=== PATIENT | female | born 1935 | race Caucasian/White ===

== ENCOUNTER 2016-09-14 18:49 | Inpatient (IN) | payer MEDICARE, OTHER ==
--- NOTE | ~2016-09-14 | DS ---
Discharge Summary [facility] [address] [facility] [place]. [address] NAME: NISHI JOHN : 37 STATUS : ADM IN PAT#: [id number] AGE: 81 ADM/REG DATE : 09/14/16 MR#: [id number] REPORT SERV DATE: 09/17/16 DICTATED BY: DAVID ARAMBULA DATE: 09/17/16 REPORT STATUS : Draft TRANSCRIBED BY: MODL DATE: 09/17/16 ADMISSION DATE: 09/14/2016 DISCHARGE DATE: 09/17/2016 DISCHARGE DIAGNOSES: 1. Acute metabolic encephalopathy probably due to inadvertent medication consumption. 2. Acute on chronic hypercapnic hypoxic respiratory failure. 3. Mild exacerbation of chronic obstructive pulmonary disease with asthma. 4. Hypertension. 5. Gastroesophageal reflux disease. 6. Peripheral neuropathy. 7. Steroid-induced hyperglycemia. 8. Peripheral arterial disease. 9. History of colon polyps. 10.Obesity. 11.Possible frontotemporal dementia based on CT scan of brain, 07/22/2014. HISTORY: This 81-year-old patient resides at home. She has a granddaughter who is there with her most of the time. She has been under a lot of stress with the of a sister in the recent months and she was very close to that sister and there was another sibling who was recently in poor health and placed in a long-term care facility. The daughter, Vilma, tells me in phone conversation, the patient has been less compliant with her medicines, began smoking again. She has been more withdrawn and emotionally flat. According to the daughter, Vilma, they felt she was more depressed, so she took her to her physician and the patient had been started on Zyprexa in addition to her Prozac that she was already on. On the day of this admission reportedly, the patient was noted by the granddaughter to be very drowsy, hard to wake up and when she was awake she was talking "out of her head." When I asked for more details, they said she was talking about her sister who was , but speaking about her as if she was alive. Granddaughter contacted the daughter and they decided to call 911. Reportedly, the daughter stayed on the phone talking to the granddaughter while the paramedics got there, reportedly Narcan was given and the patient had a miraculous awakening. The patient was brought to the ER at [facility], and during the evaluation was noted to have acute on chronic hypercapnic respiratory insufficiency with an arterial blood gas showing pH 7.30, pCO2 of 64, PO2 of 93, bicarbonate 31.2 on 32% oxygen. The patient was referred to our team for inpatient care. The patient had a chest x-ray showing a small right pleural effusion, right basilar atelectasis, some atelectasis at the left hilar area. Our admitting partner also had her get a CT scan of the abdomen and pelvis which revealed a fairly large right inguinal hernia with bowel in it, but no evidence of entrapment. She had some bibasilar atelectasis and cardiomegaly. The patient's urine drug screen was positive for benzodiazepines and marijuana. The family and patient do not believe the marijuana part of this at all and they think that there should have been opiates in it. The patient has no recollection of the time at home or being brought to the emergency room, but after being at the hospital she was awake and alert and cooperative. She now thinks that she remembers taking one of her Percocet tablets and one of her Ativan tablets before going to bed because she was very, Discharge Summary [address] [address] NAME: NISHI JOHN : 37 STATUS : ADM IN [facility]#: [id number] AGE: 81 ADM/REG DATE : 09/14/16 MR#: [id number] REPORT SERV DATE: 09/17/16 DICTATED BY: DAVID ARAMBULA DATE: 09/17/16 REPORT STATUS : Draft TRANSCRIBED BY: SHARRI DATE: 09/17/16 very sleepy and she states she normally does not do this. Her daughter, Vilma, told me by phone conversation that she herself puts the patient's medicines in a pill box and only allows the patient to have just a very few pain or pills or Ativan. The patient denies any suicidal ideation. Family does not believe there is any suicidal ideation. We did give her some steroids and some breathing treatments. She quickly improved her respiratory rodriguez back to what appears like her baseline. Initially was put on some BiPAP, but that was not needed for very long. On 09/16/2016 on 28% oxygen with no BiPAP, pH 7.41, pCO2 of 57, PO2 of 72, bicarb 35.8. The patient alert and ambulatory. With the steroids for her COPD, asthma exacerbation, she had some hyperglycemia. Her A1c is 6.1%, so she may indeed have some underlying impaired glucose tolerance. We are releasing her home with home health and family. She is to follow up with her PCP in the next week. Reportedly, she also has some rectal prolapse, but surgery on that has been postponed because of her underlying pulmonary disease. DISCHARGE MEDICATIONS: 1. Vytorin 10/20 once a day. 2. Prozac 20 mg daily. 3. Lasix 40 mg daily. 4. Gabapentin 300 mg in the morning and 600 mg in the evening. 5. Lisinopril 20 mg daily. 6. Metoprolol 12.5 mg twice a day. 7. Zyprexa 2.5 mg daily. 8. Protonix 40 mg daily. 9. Daliresp 500 mcg daily. 10.Spiriva one capsule inhaled daily. 11.Apresoline 50 mg t.i.d. 12.ProAir two puffs q.4 hours p.r.n. shortness of breath. 13.Advair Diskus 50/500 mcg one puff twice a day. 14.Ativan 0.5 mg b.i.d. p.r.n. anxiety. 15.Percocet 5/325 mg daily p.r.n. pain. 16.Premarin 0.625 mg daily. 17.KCl 20 mEq daily. 18.She supposedly has some DuoNeb at home (the patient typically would not be on both DuoNeb and Spiriva since DuoNeb is ipratropium and Spiriva is tiotropium. PCP to address this). The patient has chronic oxygen 2 L nasal cannula both at home and a portable. She wants to discuss with her PCP the option of changing her rolling portable oxygen to a smaller liquid oxygen unit that is not so heavy. Discharge Summary [address] [place] [facility] [address] NAME: NISHI JOHN : 37 STATUS : ADM IN PAT#: [id number] AGE: 81 ADM/REG DATE : 09/14/16 MR#: [id number] REPORT SERV DATE: 09/17/16 DICTATED BY: DAVID ARAMBULA DATE: 09/17/16 REPORT STATUS : Draft TRANSCRIBED BY: SHARRI DATE: 09/17/16 I spent 27 minutes today with the patient and with discharge planning. RSG/SHARRI David Arambula M.D. / [id number] CC: Chris Gimenez M.D. Colleen Schmitt, M.D. James Jolley II, M.D. Mark W Fugate, M.D. Pamela Sud, M.D.
--- NOTE | ~2016-09-14 | HP ---
History And Physical [id number] [place]. [address] NAME: NISHI JOHN : 37 STATUS : ADM IN [facility]#: [id number] AGE: 81 ADM/REG DATE : 09/14/16 MR#: [id number] REPORT SERV DATE: 09/15/16 DICTATED BY: FARZAD ALVARADO DATE: 09/14/16 REPORT STATUS : Draft TRANSCRIBED BY: MODL DATE: 09/14/16 DATE OF ADMISSION: 09/14/2016 REASON FOR ADMISSION: Altered mental status, shortness of breath. PRIMARY CLINICAL LABORATORY TECHNICIAN: Catherine Silva M.D. HISTORY OF PRESENT ILLNESS: This is an 81-year-old female with known history of chronic hypoxic respiratory failure; hypercapnia due to COPD, on 2 L home oxygen; frontotemporal dementia; CAD; PAD; sees Dr. Velez; known history of GERD; neuropathy; history of shingles; history of morbid obesity, likely obesity hypoventilation syndrome; diastolic heart failure, chronic nature; rectal prolapse, was awaiting surgery but due to the lung compromise not able to pursue; smoking addiction in the past; and anxiety/depression. SURGICAL HISTORY: Tubal ligation, hysterectomy, previous cholecystectomy, previous inguinal hernia repair, and vascular stenting in bilateral extremities. The patient comes in very altered. The family states she was hallucinating and "talking out of her head," did not know where she was, prompted to coming here as a result. The patient had a rapid response in terms of mentation improvement to 0.2 of IV Narcan. She initially was 94% on 3 L per ER sheet or she takes 2 L at baseline. Placed on BiPAP with a noted ABG showing 7.31/65/78 on 38%, I do not know her baseline pCO2. The patient states positive productive cough for only the past 2 to 3 weeks. Positive chills. Positive shortness of breath. Positive orthopnea. No PND. No fevers. No nausea. No vomiting. No diarrhea, but apparently the family states she has "accidents" in which she has spontaneous bowel movements as a result of rectal prolapse and inability to get surgery due to her lung-compromised state. Last time she was discharged in late 06/2016, she had very poor prognosis regarding her pulmonary status. She is ambulating with a walker. She decided to go home with home health, [facility]. The patient is currently in hypertensive urgency. She is now 200 systolic. PAST MEDICAL HISTORY: See above. PAST SURGICAL HISTORY: See above. ALLERGIES: APPARENTLY SULFA AND CODEINE. FAMILY HISTORY: Hypertension in at least one parent. SOCIAL HISTORY: Lives at home. She quit smoking, but she has over 09-wdks-cyzp history of smoking in the past. Retired from working in a sewing factory. , 6 children, most of whom live locally. Lives in [place] at home. No alcohol. No drug use. History And Physical [address] [place]. [address] NAME: NISHI JOHN : 37 STATUS : ADM IN [facility]#: [id number] AGE: 81 ADM/REG DATE : 09/14/16 MR#: [id number] REPORT SERV DATE: 09/15/16 DICTATED BY: FARZAD ALVARADO DATE: 09/14/16 REPORT STATUS : Draft TRANSCRIBED BY: SHARRI DATE: 09/14/16 HOME MEDICATIONS: See MAR, continue what is relevant. REVIEW OF SYSTEMS: Done, see HPI. Otherwise, negative. OBJECTIVE: VITAL SIGNS: She is now 200 systolic from 171/74, 98.3 temp, 64 pulse, 18 respirations, and 94% on 3 L. Currently, she is on BiPAP, 97%. GENERAL: Guarded. HEENT: PERRLA. No scleral icterus. CARDIOVASCULAR: Regular rate and rhythm. 1/6 systolic aortic murmur. RESPIRATORY: Decreased breath sounds, bibasilar, mild expiratory wheeze and crackles. ABDOMEN: She does have some tenderness to palpation, more in the left flank, this apparently is new. No rebound tenderness. No peritoneal signs. EXTREMITIES: No edema. No ecchymosis. NEUROLOGIC: She is able to answer through the BiPAP that it is 2016 and it is September and she knows where she is. She is a and A and O x4/4. GCS of 15. Previously, she was nearly obtunded. LABORATORY DATA: White count 5.1; hemoglobin 10.7; 151,000 platelets; 4.2 potassium; 33 bicarb; 0.84 creatinine; BUN 15; and 70 sugar. Troponin negative. Alkaline phosphatase low at 23. DOA, positive benzos, positive THC. Chest x-ray, she has bilateral more than bibasilar alveolar infiltration, right middle lobe, the inferior part is a bit hazy. Left lower lobe, possible effusion, very very small costophrenic blunting. EKG is primary AV block, 268. TX, no ischemic ST-T changes. She has an incomplete intraventricular conduction delay. ASSESSMENT: 1. Acute on chronic hypoxic hypercapnic respiratory failure. 2. Narcotic overdose likely, confirmed with significant mentation improvement with just 0.2 of IV Narcan. 3. Acute exacerbation of chronic obstructive pulmonary disease, 3 out of 3 GOLD criteria. 4. History of coronary artery disease and peripheral artery disease. 5. Debility. PLAN: We will go ahead and admit this patient to the IMCU empirically given her hypercapnia and altered mental status initially. As a result, we will get an ABG in the morning, place her on BiPAP, and continue it at the same settings. We will place on IV Solu-Medrol. Get a BNP given her hypertensive urgency. Give her Bumex IV t.i.d. if she has a BNP over 100. Place her on Brovana, budesonide, Protonix, Spiriva, empiric Zosyn as she may have aspirated given her altered mental status. Increased oxygen requirements now. Get a CT of abdomen and pelvis regarding her abdominal pain. Also place her on hydralazine IV q.3 h. p.r.n. for systolic greater than 170. See rest of my orders. All questions were answered, it took well over 60 minutes to do. Reference [employer] and History And Physical [address] [address] NAME: NISHI JOHN : 37 STATUS : ADM IN PAT#: [id number] AGE: 81 ADM/REG DATE : 09/14/16 MR#: [id number] REPORT SERV DATE: 09/15/16 DICTATED BY: FARZAD ALVARADO DATE: 09/14/16 REPORT STATUS : Draft TRANSCRIBED BY: SHARRI DATE: 09/14/[address] [facility] LUCRECIA/SHARRI Farzad Alvarado DO / [id number] CC: Chris Mcdonnell M.D.
[2016-09-14 17:50] LABS: BASOPHILS 0.8 %; BASOPHILS ABSOLUTE 0.04 10/3/uL (0.0-0.16); EOSINOPHILS 2.4 %; EOSINOPHILS ABSOLUTE 0.12 10/3/uL (0.0-0.53); ER CBC TAT 0 Hrs 05 Mins; HEMATOCRIT 33.9 % (36.0-48.0); HEMOGLOBIN 10.7 g/dL (12.0-16.0); IMMATURE GRANULOCYTES 0.6 %; IMMATURE GRANULOCYTES ABSOLUTE 0.03 10/3/uL (0.0-0.11); LYMPHOCYTES 29.6 %; MEAN CORPUS HGB CONC 31.6 g/dL (32.0-36.0); MEAN CORPUSCULAR HEMOGLOB 30.7 pg (26.0-34.0); MONOCYTES 7.5 %; MONOCYTES ABSOLUTE 0.38 10/3/uL (0.21-1.20); NEUTROPHILS 59.1 %; PLATELET COUNT 151 10/3/uL (150-400); RBC DISTRIBUTION WIDTH 13.2 % (12.0-16.0); RED CELL COUNT 3.48 10/6/uL (4.0-5.6); WHITE BLOOD CELLS 5.1 10/3/uL (4.5-10.5)
[2016-09-14 17:53] LABS: MANUAL DIFF NO %; MEAN CORPUSCULAR VOLUME 97.4 fL (80-100)
[2016-09-14 17:59] LABS: PARTIAL THROMBO TIME 27.2 SEC (22.5-37.2); PROTIME (NOT ORD) 13.4 SEC (12.0-14.5)
[2016-09-14 18:09] LABS: A/G RATIO 1.2 (0.7-1.9); ACETAMINOPHEN LEVEL (TYLENOL) 2.1 MCG/ML (10.0-20.0); ALBUMIN 3.3 G/DL (3.5-5.0); ALKALINE PHOSPHATASE 23 U/L (45-117); BUN (BLOOD UREA NITROGEN) 15 MG/DL (6-23); CALCIUM, SERUM 8.5 MG/DL (8.5-10.4); CHLORIDE, SERUM 107 MMOL/L (96-112); CO2 (CARBON DIOXIDE) 33 MMOL/L (24-34); CREATININE 0.84 MG/DL (0.55-1.02); GFR AFRICAN AMERICAN 76 ML/MIN (>=60); GFR NON AFRICAN AMERICAN 66 ML/MIN (>=60); GLOBULIN 2.7 G/DL (2.5-4.1); GLUCOSE, SERUM 77 MG/DL (60-99); POTASSIUM, SERUM 4.2 MMOL/L (3.5-5.3); SGOT(AST) 17 U/L (5-40); SGPT(ALT) 17 U/L (5-65); SODIUM, SERUM 146 MMOL/L (135-148); TOTAL BILIRUBIN 0.3 MG/DL (0-1.2); TROPONIN I 0.02 NG/ML (<0.05)
[2016-09-14 18:10] LABS: ALCOHOL < 10 MG/DL (0); SALICYLATE < 1.7 MG/DL (-)
[2016-09-14 18:29] LABS: ASCORBIC ACID (UR NOT ORDER) NEG (NEG); BILIRUBIN, URINE NEGATIVE (NEG); ER URINALYSIS TAT 0 Hrs 13 Mins; KETONE, URINE NEGATIVE (NEG); LEUKOCYTE ESTERASE(NOT OR TRACE (NEG); NITRITE (URINE) NEG (NEG); WBC (NOT ORDERED) (RFLEX) 4 (0-5)
[2016-09-14 18:37] LABS: LACTATE 0.3 MMOL/L (0.3-2.4)
[~2016-09-14 18:49] MED LIST: ADVAIR INH; ADVAIR250 INH; ALBUTEROL INH; APRES50 PO; ASAB PO; ATEN100 PO; ATV1 PO; BROMIDE INH; CALTRA600D PO; CALTRAT600 PO; COREG3 PO; DALIRESP500 MCG PO; DULERA 100 MCG/13 GM INH; DULERA 200 MCG/13 GM INH; DUONEB INH; IRON PO; KLONO1 PO; KLOR-CON 1010 MEQ PO; KLOR-CON M1010 MEQ PO; L40 PO; L80 PO; LIQUID TEARS OPH; LOFIBRA134 MG PO; LOP25 PO; MOBIC15 MG PO; MONODOX100 MG PO; MULTIVIT/MIN PO; MULTIVITAMI1 PO; NEUR300 PO; NEUR600 PO; NEXIUM40 PO; OXYGEN; P10 PO; PCET PO; PERCOCET1 TA2 PO; PREM625 PO; PREV30 PO; PRIN10 PO; PRIN20 PO; PROAIR HFA INH; PROTONIX PO; PROVENTSOL INH; PROZAC PO; PULRESP1 INH; ROXICET1 TAB PO; SILVADENE1 % TOP; SINGULAIR1 PO; SPIRIVA INH; TRICOR145 PO; V2 PO; VITAMIN C100 MG PO; VITD PO; VYTORIN 10/20 T1 TAB PO; ZANAFLEX 4 MG TA4 MG PO; ZANAFLEX2 MG PO; ZYP2 PO; [UNRECOGNIZED DRUG - OTHER]; [UNRECOGNIZED DRUG - OTHER] PO
[2016-09-14 18:54] LABS: AMPHETAMINES (NOT ORD) NEG (NEG); BENZODIAZEPINES (NOT ORD) POS (NEG); COCAINE (NOT ORDERED) NEG (NEG); PHENCYCLIDINE(PCP) NEG (NEG)
[2016-09-14 18:55] LABS: BARBITURATES (NOT ORDERED NEG (NEG); CANNABINOIDS (THC) POS (NEG); OPIATES NEG (NEG); TRICYCLICS NEG (NEG)
[2016-09-14] MEDS ORDERED: NEUR600 PO (19:31)
[2016-09-14] MEDS ORDERED: NEUR300 PO (19:31)
[2016-09-14] MEDS ORDERED: L40 PO (19:32)
[2016-09-14] MEDS ORDERED: PCET PO (19:32)
[2016-09-14] MEDS ORDERED: LOP25 PO (19:32)
[2016-09-14] MEDS ORDERED: PROAIR HFA INH (19:32)
[2016-09-14] MEDS ORDERED: ADVAIR INH (19:33)
[2016-09-14] MEDS ORDERED: SPIRIVA INH (19:33)
[2016-09-14] MEDS ORDERED: ZYP2 PO (19:33)
[2016-09-14] MEDS ORDERED: APRES50 PO (19:33)
[2016-09-14] MEDS ORDERED: PRIN20 PO (19:34)
[2016-09-14] MEDS ORDERED: PREM625 PO (19:34)
[2016-09-14] MEDS ORDERED: VYTORIN 10/20 T1 TAB PO (19:34)
[2016-09-14] MEDS ORDERED: ATV.5 PO (19:34)
[2016-09-14] MEDS ORDERED: PROZAC PO (19:35)
[2016-09-14] MEDS ORDERED: PROTONIX PO (19:35)
[2016-09-14] MEDS ORDERED: KDUR20 PO (19:35)
[2016-09-14] MEDS ORDERED: PULRESP1 INH (19:36)
[2016-09-14] MEDS ORDERED: DUONEB INH (19:36)
[2016-09-14] MEDS ORDERED: DALIRESP500 MCG PO (19:36)
[2016-09-14 19:46] LABS: BE (BASE EXCESS) 4.4 MEQ/L (0 +/- 2.5); CARBOXYHEMOGLOBIN 1.4 % (0-3); HCO3 (ACTUAL BICARBONATE) 32.1 MEQ/L (23-27); HEMOBLOGIN CONTENT 11.2 G/DL (12-16); INSTRUMENT SERIAL # 8087; METHEMOGLOBIN 0.4 % (0-3); O2 CONTENT 14.8 VOL% (18-24); OPERATOR ID 17589; PCO2 (CO2 TENSION) 65 MMHG (35-45); PO2 (O2 TENSION) 78 MMHG (79-93); SAMPLE Arterial; pH 7.31 (7.37-7.43)
[2016-09-14 19:47] LABS: ALLENS TEST Pos; BIPAP 15/5 cm.H2O
[2016-09-14 20:36] LABS: ALLENS TEST Pos; BE (BASE EXCESS) 3.5 MEQ/L (0 +/- 2.5); HCO3 (ACTUAL BICARBONATE) 31.2 MEQ/L (23-27); HEMOBLOGIN CONTENT 11.4 G/DL (12-16); INSTRUMENT SERIAL # 8087; METHEMOGLOBIN 0.3 % (0-3); O2 CONTENT 15.4 VOL% (18-24); OPERATOR ID 14335; PCO2 (CO2 TENSION) 64 MMHG (35-45); PO2 (O2 TENSION) 93 MMHG (79-93); SAMPLE Arterial
[2016-09-15 00:51] LABS: PROCALCITONIN <0.05 ng/mL (<0.5)
[2016-09-15 01:24] LABS: A/G RATIO 1.2 (0.7-1.9); ALBUMIN 3.4 G/DL (3.5-5.0); ALKALINE PHOSPHATASE 25 U/L (45-117); BUN (BLOOD UREA NITROGEN) 15 MG/DL (6-23); CALCIUM, SERUM 8.6 MG/DL (8.5-10.4); CHLORIDE, SERUM 103 MMOL/L (96-112); CO2 (CARBON DIOXIDE) 35 MMOL/L (24-34); CREATININE 0.89 MG/DL (0.55-1.02); GFR AFRICAN AMERICAN 71 ML/MIN (>=60); GFR NON AFRICAN AMERICAN 61 ML/MIN (>=60); GLOBULIN 2.9 G/DL (2.5-4.1); PHOSPHORUS, SERUM 3.3 MG/DL (2.5-4.5); POTASSIUM, SERUM 3.9 MMOL/L (3.5-5.3); SGOT(AST) 15 U/L (5-40); SGPT(ALT) 15 U/L (5-65); SODIUM, SERUM 145 MMOL/L (135-148); TOTAL BILIRUBIN 0.4 MG/DL (0-1.2); TOTAL PROTEIN 6.3 G/DL (6.0-8.5); TROPONIN I 0.02 NG/ML (<0.05)
[2016-09-15 01:30] LABS: GLUCOSE, SERUM 106 MG/DL (60-99)
[2016-09-15 04:45] LABS: ALLENS TEST Pos; BE (BASE EXCESS) 2.5 MEQ/L (0 +/- 2.5); BIPAP 15/5 cm.H2O; HCO3 (ACTUAL BICARBONATE) 30.2 MEQ/L (23-27); HEMOBLOGIN CONTENT 11.9 G/DL (12-16); INSTRUMENT SERIAL # 8083; METHEMOGLOBIN 0.2 % (0-3); O2 CONTENT 15.6 VOL% (18-24); PCO2 (CO2 TENSION) 63 MMHG (35-45); PO2 (O2 TENSION) 73 MMHG (79-93); SAMPLE Arterial
[2016-09-15 06:28] LABS: BASOPHILS 0.1 %; BASOPHILS ABSOLUTE 0.01 10/3/uL (0.0-0.16); EOSINOPHILS 0.3 %; EOSINOPHILS ABSOLUTE 0.02 10/3/uL (0.0-0.53); HEMATOCRIT 35.4 % (36.0-48.0); HEMOGLOBIN 11.2 g/dL (12.0-16.0); IMMATURE GRANULOCYTES 0.8 %; IMMATURE GRANULOCYTES ABSOLUTE 0.06 10/3/uL (0.0-0.11); LYMPHOCYTES 6.3 %; LYMPHOCYTES ABSOLUTE 0.48 10/3/uL (0.67-4.30); MANUAL DIFF NO %; MEAN CORPUS HGB CONC 31.6 g/dL (32.0-36.0); MEAN CORPUSCULAR HEMOGLOB 30.5 pg (26.0-34.0); MEAN CORPUSCULAR VOLUME 96.5 fL (80-100); MEAN PLATELET VOLUME 10.2 fL (9.2-13.0); MONOCYTES 2.1 %; MONOCYTES ABSOLUTE 0.16 10/3/uL (0.21-1.20); NEUTROPHILS 90.4 %; NEUTROPHILS ABSOLUTE 6.84 10/3/uL (2.02-8.40); PLATELET COUNT 162 10/3/uL (150-400); RBC DISTRIBUTION WIDTH 13.3 % (12.0-16.0); RED CELL COUNT 3.67 10/6/uL (4.0-5.6); WHITE BLOOD CELLS 7.6 10/3/uL (4.5-10.5)
[2016-09-15 10:32] LABS: GLYCOHEMOGLOBIN (HbA1c) 6.1 % (4.7-6.1)
[2016-09-15 11:29] LABS: B NATRIURETIC PEPTIDE (BNP) 962.4 PG/ML (< 100.0)
[2016-09-16 06:54] LABS: CALCIUM, SERUM 8.9 MG/DL (8.5-10.4); CHLORIDE, SERUM 102 MMOL/L (96-112); CO2 (CARBON DIOXIDE) 35 MMOL/L (24-34); CREATININE 1.11 MG/DL (0.55-1.02); GFR AFRICAN AMERICAN 54 ML/MIN (>=60); GFR NON AFRICAN AMERICAN 47 ML/MIN (>=60); GLUCOSE, SERUM 113 MG/DL (60-99); PHOSPHORUS, SERUM 2.4 MG/DL (2.5-4.5); POTASSIUM, SERUM 3.5 MMOL/L (3.5-5.3); SODIUM, SERUM 144 MMOL/L (135-148)
[2016-09-16 06:55] LABS: BUN (BLOOD UREA NITROGEN) 28 MG/DL (6-23); HEMOGLOBIN 10.1 g/dL (12.0-16.0); MEAN CORPUS HGB CONC 31.6 g/dL (32.0-36.0); MEAN CORPUSCULAR HEMOGLOB 30.1 pg (26.0-34.0); MEAN CORPUSCULAR VOLUME 95.2 fL (80-100); MEAN PLATELET VOLUME 10.4 fL (9.2-13.0); NUCLEATED RED BLOOD CELLS 2.4 /100WBC (0-0); PLATELET COUNT 172 10/3/uL (150-400); RBC DISTRIBUTION WIDTH 13.2 % (12.0-16.0); RED CELL COUNT 3.36 10/6/uL (4.0-5.6); WHITE BLOOD CELLS 7.2 10/3/uL (4.5-10.5)
[2016-09-16 06:56] LABS: MANUAL DIFF YES %
[2016-09-16 07:13] LABS: BAND NEUTROPHILS 2 %; LYMPHOCYTES 17 %; LYMPHOCYTES ABSOLUTE (CALC) 1.22 10/3/uL (0.67-4.30); MONOCYTES 6 %; MONOCYTES ABSOLUTE (CALC) 0.43 10/3/uL (0.21-1.20); NEUTROPHILS ABSOLUTE (CALC) 5.54 10/3/uL (2.02-8.40); SEGMENTED NEUTROPHIL (0) 75 %; TOTAL NUCLEATED CELLS 100
[2016-09-16 07:14] LABS: PLATELET ESTIMATE ADQ (ADEQUATE); RBC MORPHOLOGY NORM (NORMAL)
[2016-09-16 14:04] LABS: ALLENS TEST Pos; BE (BASE EXCESS) 9.4 MEQ/L (0 +/- 2.5); CARBOXYHEMOGLOBIN 0.7 % (0-3); DEVICE NC; HCO3 (ACTUAL BICARBONATE) 35.8 MEQ/L (23-27); HEMOBLOGIN CONTENT 12.4 G/DL (12-16); INSTRUMENT SERIAL # 8083; METHEMOGLOBIN 0.2 % (0-3); O2 CONTENT 16.4 VOL% (18-24); OPERATOR ID 32214; PCO2 (CO2 TENSION) 57 MMHG (35-45); PO2 (O2 TENSION) 72 MMHG (79-93); SAMPLE Arterial; pH 7.41 (7.37-7.43)
[2016-09-17 05:35] LABS: BASOPHILS 0 %; EOSINOPHILS 0 %; HEMATOCRIT 34.2 % (36.0-48.0); HEMOGLOBIN 10.9 g/dL (12.0-16.0); IMMATURE GRANULOCYTES 0.3 %; IMMATURE GRANULOCYTES ABSOLUTE 0.02 10/3/uL (0.0-0.11); LYMPHOCYTES 16.9 %; LYMPHOCYTES ABSOLUTE 1.17 10/3/uL (0.67-4.30); MEAN CORPUS HGB CONC 31.9 g/dL (32.0-36.0); MEAN CORPUSCULAR HEMOGLOB 30.2 pg (26.0-34.0); MEAN CORPUSCULAR VOLUME 94.7 fL (80-100); MEAN PLATELET VOLUME 9.9 fL (9.2-13.0); MONOCYTES 9.7 %; MONOCYTES ABSOLUTE 0.67 10/3/uL (0.21-1.20); NEUTROPHILS 73.1 %; NEUTROPHILS ABSOLUTE 5.08 10/3/uL (2.02-8.40); PLATELET COUNT 160 10/3/uL (150-400); RBC DISTRIBUTION WIDTH 13.2 % (12.0-16.0); RED CELL COUNT 3.61 10/6/uL (4.0-5.6); WHITE BLOOD CELLS 6.9 10/3/uL (4.5-10.5)
[2016-09-17 05:36] LABS: MANUAL DIFF NO %
[2016-09-17 05:46] LABS: CALCIUM, SERUM 9.4 MG/DL (8.5-10.4); CHLORIDE, SERUM 98 MMOL/L (96-112); CO2 (CARBON DIOXIDE) 36 MMOL/L (24-34); CREATININE 1.15 MG/DL (0.55-1.02); GFR AFRICAN AMERICAN 52 ML/MIN (>=60); GFR NON AFRICAN AMERICAN 45 ML/MIN (>=60); GLUCOSE, SERUM 118 MG/DL (60-99); POTASSIUM, SERUM 3.3 MMOL/L (3.5-5.3); SODIUM, SERUM 143 MMOL/L (135-148)
[2016-09-17 05:48] LABS: BUN (BLOOD UREA NITROGEN) 33 MG/DL (6-23); PHOSPHORUS, SERUM 3.7 MG/DL (2.5-4.5)
== END 2016-09-17 15:10 | disposition home health service (06) | DRG 917 ==
LOC: ER 18:49 → IMCU 20:28 → 5SO 09-15 14:25
PROVIDERS: Hospitalist; Internal Medicine; Nurse Practitioner
DX: T50.991A Poisoning by other drugs, medicaments and biological substances, accidental (unintentional), initial encounter (principal); G92 Toxic encephalopathy; J96.21 Acute and chronic respiratory failure with hypoxia; J90 Pleural effusion, not elsewhere classified; J96.22 Acute and chronic respiratory failure with hypercapnia; I50.32 Chronic diastolic (congestive) heart failure; J44.1 Chronic obstructive pulmonary disease with (acute) exacerbation; J98.11 Atelectasis; I10 Essential (primary) hypertension; K21.9 Gastro-esophageal reflux disease without esophagitis; G62.9 Polyneuropathy, unspecified; E66.9 Obesity, unspecified; G31.09 Other frontotemporal neurocognitive disorder; F02.80 Dementia in other diseases classified elsewhere, unspecified severity, without behavioral disturbance, psychotic disturbance, mood disturbance, and anxiety; Z99.81 Dependence on supplemental oxygen; I25.10 Atherosclerotic heart disease of native coronary artery without angina pectoris; F17.210 Nicotine dependence, cigarettes, uncomplicated; Z91.14 Patient's other noncompliance with medication regimen; F32.9 Major depressive disorder, single episode, unspecified; Z79.899 Other long term (current) drug therapy; Z88.5 Allergy status to narcotic agent; Z88.2 Allergy status to sulfonamides; Z82.49 Family history of ischemic heart disease and other diseases of the circulatory system; Y92.019 Unspecified place in single-family (private) house as the place of occurrence of the external cause
CPT/HCPCS: 36600; 71010; 74176; 80048; 80053; 80305; 80307; 81001; 82140; 82150; 82805; 82962; 83036; 83605; 83615; 83690; 83735; 83880; 84100; 84132; 84145; 84443; 84484; 85025; 85610; 85730; 87040; 87449; 87641; 93005; 94640; 94660; 96365; 96375; 97162-GP; 99291; A9270-GY; C9113; G8978-CK-GP; G8979-CI-GP; J0360; J1956; J2405; J2543; J2930